=== PATIENT | female | born 1995 | race African-American/Black ===

== ENCOUNTER 2017-10-01 19:42 | Emergency (ER) | payer SELFPAY ==
[~2017-10-01] VITALS: Ht 157.5 cm; Wt 45.8 kg
[2017-10-01 19:42] VITALS: BP 122/72
--- NOTE | 2017-10-01 19:46 | ED.ADGEN ---
Past History Past Medical History: Other Past Surgical History: Other Adult General Chief Complaint Chief Complaint ".. I got these lesions on my Lt arm.. they started when I turned 17.. I worried they may be cancer..." HPI HPI Patient is a 22 year old female who presents with above hx and complaints two 1 cm lesions on Lt arm. . The lesions are flat dark pigmented . . Lesions have been getting larger. Pt. family said it may be cancer. Pt presents to have a diagnosis tonight. Pt. denies any previous history of cancer. Lesions have grown slowly. Patient denies any trauma cause initial lesion. She has no adenopathy in that arm. Patient is normally healthy. Patient does not follow-up primary care. Review of Systems Review of Systems Constitutional: Denies fever or chills [] Eyes: Denies change in visual acuity, redness, or eye pain [] HENT: Denies nasal congestion or sore throat [] Respiratory: Denies cough or shortness of breath [] Cardiovascular: No additional information not addressed in HPI [] GI: Denies abdominal pain, nausea, vomiting, bloody stools or diarrhea [] : Denies dysuria or hematuria [] Musculoskeletal: Denies back pain or joint pain [] Integument: Denies rash or skin lesions Pt. []worried about two skin lesions Neurologic: Denies headache, focal weakness or sensory changes [] Endocrine: Denies polyuria or polydipsia [] All other systems were reviewed and found to be within normal limits, except as documented in this note. Family History Family History Cancer Current Medications Current Medications See Nursing Allergies Allergies NKDA Physical Exam Physical Exam Constitutional: Well developed, well nourished, no acute distress, non-toxic appearance. [] HENT: Normocephalic, atraumatic, bilateral external ears normal, oropharynx moist, no oral exudates, nose normal. [] Eyes: PERRLA, EOMI, conjunctiva normal, no discharge. [] Neck: Normal range of motion, no tenderness, supple, no stridor. [] Cardiovascular:Heart rate regular rhythm, no murmur [] Lungs & Thorax: Bilateral breath sounds clear to auscultation [] Abdomen: Bowel sounds normal, soft, no tenderness, no masses, no pulsatile masses. Obese. Skin: Warm, dry, no erythema, no rash. [] Two pigmented lesions as per HPI Back: No tenderness, no CVA tenderness. [] Extremities: No tenderness, no cyanosis, no clubbing, ROM intact, no edema. [] Neurologic: Alert and oriented X 3, normal motor function, normal sensory function, no focal deficits noted. [] Psychologic: Affect anxious, judgement normal, mood normal. [] Current Patient Data Vital Signs Vital Signs Date Time Temp Pulse Resp B/P (MAP) Pulse Ox O2 Delivery O2 Flow Rate FiO2 10/01/17 20:30 105 18 100 Room Air 10/01/17 19:42 98.4 EKG EKG [] Radiology/Procedures Radiology/Procedures [] Course & Med Decision Making Course & Med Decision Making Pertinent Labs and Imaging studies reviewed. (See chart for details). Pt. to follow up with primary. Consider removal of lesions for diagnosis and treatment. Must follow up. [] Final Impression Final Impression 1. Skin[]- Lesions Dragon Disclaimer Dragon Disclaimer This electronic medical record was generated, in whole or in part, using a voice recognition dictation system. VANESSA GARCIA MD Oct 01, 2017 19:46
== END 2017-10-01 20:30 | disposition home or self-care (01) ==
LOC: ER 19:42
DX: L98.8 Other specified disorders of the skin and subcutaneous tissue (principal)
CPT/HCPCS: 99281